=== PATIENT | male | born 1950 | race Caucasian/White ===

== ENCOUNTER 2018-01-10 07:22 | Day surgery (SDC) | payer OTHER, BC ==
[~2018-01-10] VITALS: Ht 170.2 cm; Wt 70.4 kg
[~2018-01-10 07:22] MED LIST: ALEVE220 M1 PO; ASPIR 8181 M1 PO; Aspirin E.C. PO; CHANTIX1 MG PO; CRESTOR10 MG PO; EXFORGE 5/161 TABLET PO; FISH OIL 1,0001 EAC7 PO; FLEXERIL10 MG PO; LO-DOSE ASPIRIN81 M1 PO; Martinic PO; NAPROSYN500 MG PO; NORCO 5/3251 TABLET PO; PERCOCET 5/31 TABLET PO; PRINIVIL10 MG PO; Percocet 5/325,Endoc PO; Pyridoxine,Vitamin B PO; TYLENOL REGULA325 MG PO; VITAMIN D1000 INTUN PO
[2018-01-10 07:55] VITALS: BP 132/73
== END 2018-01-10 08:10 | disposition home or self-care (01) ==
LOC: SDC 07:22
PROC: 0QJYXZZ Inspection of Lower Bone, External Approach (ICD-10-PCS; principal; 2018-01-10)
DX: C43.71 Malignant melanoma of right lower limb, including hip (principal); Z53.09 Procedure and treatment not carried out because of other contraindication
CPT/HCPCS: J0131; J0690; S0020

== ENCOUNTER 2018-01-12 08:45 | Day surgery (SDC) | payer OTHER, BC ==
[~2018-01-12] VITALS: Ht 170.2 cm; Wt 70.4 kg
[2018-01-12 09:20] VITALS: BP 133/73
[2018-01-12] MEDS ORDERED: NORCO 5/3251 TABLET PO (15:13)
[2018-01-12 15:52] VITALS: BP 173/77
[2018-01-12 16:37] VITALS: BP 166/73
== END 2018-01-12 16:40 | disposition home or self-care (01) ==
LOC: SDC 08:45 → NUC 08:45 → SDC 09:27
DX: C43.71 Malignant melanoma of right lower limb, including hip (principal); C77.9 Secondary and unspecified malignant neoplasm of lymph node, unspecified; I73.9 Peripheral vascular disease, unspecified; Z95.820 Peripheral vascular angioplasty status with implants and grafts; I10 Essential (primary) hypertension; E78.5 Hyperlipidemia, unspecified; Z85.528 Personal history of other malignant neoplasm of kidney; F17.200 Nicotine dependence, unspecified, uncomplicated; Z82.49 Family history of ischemic heart disease and other diseases of the circulatory system; Z80.3 Family history of malignant neoplasm of breast; Z85.51 Personal history of malignant neoplasm of bladder
CPT/HCPCS: 78195; 78999; 88305; 88307; 88341 TC; 88342 TC; A9541; J0690; J1100; J2250; J2405; S0020